=== PATIENT | female | born 1960 | race Caucasian/White ===

== ENCOUNTER 2018-08-29 01:33 | Emergency (ER) | payer MEDICAID, OTHER ==
[~2018-08-29] VITALS: Ht 160 cm; Wt 80.0 kg
[2018-08-29 01:36] VITALS: Ht 160 cm; Wt 80.0 kg
--- NOTE | 2018-08-29 05:47 | ERD ---
ER Documentation Chief Complaint Chief Complaint prod cough x1 week, blood tinged today. CWP-worse w/ coughing. no fever HPI This is a 58-year-old female patient who presents to the emergency room with complaint of productive cough x1 week. + Phlegm, chest pain with cough, yellow sputum. Patient does not smoke. History significant for hypertension and diabetes. ROS All systems reviewed and are negative except as per history of present illness. Medications Home Meds Active Scripts Benzonatate* (Tessalon Perle*) 100 Mg Capsule, 200 MG PO Q8H PRN for COUGH for 7 Days, #30 CAP Prov:DODIE BROOKS NP 08/29/18 Albuterol Sulfate* (Proair HFA*) 8.5 Gm Hfa.aer.ad, 2 PUFF INH Q4 for wheezing for 7 Days, #1 INHALER Prov:DODIE BROOKS NP 08/29/18 Ibuprofen* (Motrin*) 600 Mg Tab, 600 MG PO Q6 for pain for 10 Days, #30 TAB Prov:DODIE BROOKS NP 08/29/18 Allergies Allergies: Coded Allergies: No Known Allergy (Unverified , 12/15/13) PMhx/Soc History of Surgery: Yes (kidneystones) Anesthesia Reaction: No Hx Neurological Disorder: No Hx Respiratory Disorders: No Hx Cardiac Disorders: Yes (HTN) Hx Psychiatric Problems: No Hx Miscellaneous Medical Probl: No Hx Alcohol Use: No Hx Substance Use: No Hx Tobacco Use: No Smoking Status: Never smoker FmHx Family History: diabetes Physical Exam Vitals Vital Signs Date Temp Pulse Resp B/P (MAP) Pulse Ox O2 O2 Flow FiO2 Time Delivery Rate 08/29/18 98.3 74 17 123/69 97 Room Air 07:33 (87) 08/29/18 98.5 94 16 159/88 96 01:36 (111) Physical Exam Const: No acute distress Head: Atraumatic Eyes: Normal Conjunctiva, PERRL ENT: Normal External Ears, TM clear BL, Nose with congestion, pharynx pink, moist, no lesions or petechiae Neck: Full range of motion. No meningismus. No lymphadenopathy Resp: Clear to auscultation bilaterally, no rales, no rhonchi, equal breath sounds Cardio: Regular rate and rhythm, no murmurs Abd: Soft, non tender, non distended. Normal bowel sounds, no organomegaly Skin: No petechiae or rashes Back: No midline or flank tenderness Ext: No cyanosis, or edema Neur: Awake and alert, clear speech, steady gait Psych: Normal Mood and Affect Results 24 hrs Current Medications Medications Dose Sig/Abhijeet Start Time Status Last (Trade) Ordered Route PRN Stop Time Admin Dose Reason Admin Ibuprofen 600 mg ONCE ONCE 08/29/18 DC 08/29/18 (Motrin) PO 06:00 05:50 08/29/18 06:01 Procedures/MDM PROCEDURES/MDM EKG: Read by Dr. Rosales, attending physician. EKG shows normal sinus rhythm at a rate of 70 bpm. No arrhythmias, acute ST elevations or T wave changes were noted. DIAGNOSTIC IMAGING: Read by radiologist. Chest Xray FINDINGS: No significant air space consolidation, focal infiltrate or effusion. Cardiac silhouette and mediastinal contours are unremarkable. Pulmonary vasculature appears normal. Regional bones are unremarkable. IMPRESSION: No acute cardiopulmonary abnormality. -Medications: Ibuprofen Patient tolerated medication well with no adverse reactions. Patient reported improvement in pain. MDM: This is a 58-year-old female patient presents emergency room with complaint of productive cough and chest pain with cough. No fevers, no nausea vomiting or diarrhea. Chest x-ray negative for pneumonia, EKG negative for ischemia. At the time of discharge the patient looked well with normal vital signs, normal work of breathing, adequate oxygenation. It was felt that the patient was suffering from a viral bronchitis and therefore no antibiotic was prescribed. Low suspicion for pneumonia, malignancy, sepsis, PE, pneumothorax, FB aspirating, or COPD. Patient was instructed on increasing hydration, use of antipyretics, and prescribed cough suppressant. Patient instructed on red flag signs and symptoms and when to return to the emergency room for emergent treatment. Patient was instructed to follow-up with her primary care physician for reevaluation within the next week. DISPOSITION and PLAN: RX: Ritika Cooper The patient has been discharge home to follow-up with community physician. Departure Diagnosis: Primary Impression: Acute viral bronchitis Condition: Stable DODIE BROOKS NP Aug 29, 2018 05:47
[2018-08-29] MEDS ORDERED: IBUPROFEN 600 MG TAB PO ONE (06:00)
[2018-08-29] MEDS ORDERED: BENZ-6 PO (07:27)
[2018-08-29] MEDS ORDERED: IBUP-1542 PO (07:27)
[2018-08-29] MEDS ORDERED: ALBU8.5H8 INH (07:27)
[2018-08-29 07:33] VITALS: BP 123/69; PULSE 74; RESP 17
== END 2018-08-29 07:34 | disposition home or self-care (01) ==
LOC: FTE 01:33
DX: J20.8 Acute bronchitis due to other specified organisms (principal); I10 Essential (primary) hypertension
CPT/HCPCS: 71046; 93005; Z7502; Z7610